=== PATIENT | female | born 1985 | race Caucasian/White ===

== ENCOUNTER 2017-03-06 06:40 | Emergency (ER) | payer OTHER ==
[~2017-03-06] VITALS: Ht 172.7 cm; Wt 193.2 kg
[~2017-03-06 06:40] MED LIST: ALBU8.5H2 INHALATION; ALPR0.5T PO; ATEN100T PO; BUDE90AE IH; CETI5TAB28 PO; ERGO500050 PO; FLUO20CA25 PO; GABA-500 PO; IMI100 PO; LOSA50TA37 PO; METF500T4 PO; OMEP40CA36 PO; ONDA-53 PO; PRAM0.5T3 PO; PRAZ1CAP2 PO; RANI150C4 PO; TRAZ-115 PO; TRIA10.8 NS; ZONI25CA3 PO
[2017-03-06 06:43] VITALS: BP 187/111; PULSE 66; RESP 18; O2SAT 96
--- NOTE | 2017-03-06 06:46 | ED.REPORT ---
HPI-Facial Injury Date of Service Mar 06, 2017 ED Provider: Trey Mahmood Patient is a 31 year old female with a hx of Asthma, anxiety, DM, and HTN complaining of dental pain onset yesterday but awoke her from sleep at 0300 this morning. Her pain is localized to her back bottom molar. Associated symptoms include L sided facial pain and headache. She denies facial swelling, throat swelling, fevers, chills, or any other symptoms. She took Aleve at 0330 this morning. Patient has had issues with the same tooth previously. Nursing Notes Stated Complaint: DENTAL AND FACE PAIN LEFT SIDE Chief Complaint: Dental Nursing Notes Reviewed: Yes Allergies: Coded Allergies: Kiwi (Verified Allergy, Severe, Tongue swells, 04/25/16) vancomycin (Verified Adverse Reaction, Severe, ACUTE TUBULAR NECROSIS, ) Scheduled Atenolol (Atenolol) 100 Mg Tablet 50 MG PO QAM Atenolol (Atenolol) 100 Mg Tablet 100 MG PO QPM Budesonide (Pulmicort Flexhaler) 1 Puff/90 Mcg Aerp 1 PUFF IH BID Cetirizine (Cetirizine) 5 Mg Tablet 10 MG PO HS Ergocalciferol (Vitamin D2) (Drisdol) 50,000 Unit Capsule 50,000 UNIT PO Q7D Fluoxetine (Fluoxetine) 20 Mg Capsule 20 MG PO DAILY Gabapentin (Gabapentin) 100 Mg Capsule 200-300 MG PO HS Losartan Potassium (Losartan Potassium) 50 Mg Tablet 100 MG PO DAILY Metformin (Metformin) 500 Mg Tablet 1,000 MG PO QAM Metformin (Metformin) 500 Mg Tablet 1,500 MG PO QPM Omeprazole (Omeprazole) 40 Mg Capsule.dr 40 MG PO DAILY Penicillin V Potassium (Penicillin V Potassium) 250 Mg Tablet 250 MG PO QID Pramipexole Dihydrochloride (Mirapex) 0.5 Mg Tablet 0.5 MG PO HS Prazosin (Prazosin) 1 Mg Capsule 2 MG PO HS Ranitidine (Ranitidine) 150 Mg Capsule 150 MG PO BID Trazodone (Trazodone) 50 Mg Tablet 50-100 MG PO HS Triamcinolone Acetonide (Nasacort) 10.8 Ml Richards 2 SPRAYS NS DAILY Zonisamide (Zonisamide) 25 Mg Capsule 25 MG PO DAILY Scheduled PRN Albuterol HFA (Proair HFA) 8.5 Gm Hfa.aer.ad 2 PUFFS INHALATION Q4H PRN PRN For Shortness of Breath Alprazolam (Xanax) 0.5 Mg Tablet 0.5-1 TAB PO BID PRN PRN For Anxiety Ondansetron (Ondansetron) 4 Mg Tablet 4 MG PO Q8H PRN PRN For Nausea Sumatriptan (Imitrex) 100 Mg Tablet 100 MG PO PRN migraine MR x1/ NTE 200mg/24 hrs General Time Seen by Provider: 06:53 Chief Complaint Other (Dental pain ) Hx Obtained From: Patient Arrived By: Walk-in Onset Occurred: Yesterday Symptom Duration: Since onset Progression Since Onset: Gradually worsening Immunizations: Unknown Similar Sx Previous: Yes Past Medical History Past Medical History Asthma anxiety DM HTN Carpal tunnel Past Surgical History R CTR thigh abscess Reports: Cholecystectomy Smoking History Never Smoker Social History Alcohol Use: "Social" Drug Use: THC Other Social History: Ambulatory Status Independent Review of Systems Review of Systems Note: +dental pain, facial pain - facial swelling Constitutional: Denies: Chills, Fever Ears / Nose / Throat: Denies: Throat swelling Neurologic: Reports: Headache Complete sys rev & neg: except as marked. Physical Exam Initial Vital Signs Vital Signs (First) Date Time Temp Pulse Resp B/P Pulse Ox O2 Delivery O2 Flow Rate FiO2 03/06/17 06:43 36.7 66 18 187/111 96 Room Air Initial VS: Reviewed, Vital signs abnormal Psychiatric: Mood/affect normal, Behavior normal, Normal thought content Head / Eyes: Atraumatic, Normocephalic ENT: Airway patent, Mucous membranes moist, Pharynx NL, No facial swelling Multiple dental caries, no obvious abscess, tooth number 17 extensive decay Neck: Atraumatic, Supple, Full range of motion Neurologic: Oriented X3, Speech NL General/Constitutional: Awake, Alert Distress / Hydration: Positive: Distress mild Appearance / Presentation: Positive: Obese, morbidly Respiratory / Chest: No respiratory distress Cardiovascular: Heart rate NL Skin: Color NL, Warm, Dry Procedures Dental Nerve Block Dental Nerve Block Note: Left Inferior alveolar nerve block Time: 07:10 Block Performed by: ED physician Consent / Setup / Site Prep: Informed consent provided, Consent from patient , Time-out performed, Hand hygiene observed Anesthesia: Inferior alveolar block Local Anesthesia: Other (marcaine with epinephrine, 3 mL ) Post-Procedure / Complications: No complications Re-Eval/Medical Decision Med Decision/Clinical Course Med Decision/Clinical Course: no periapical abscess. no trismus. Re-Evaluation/Progress : Time of Eval: 07:11 Re-Evaluation/Progress Note: Discussed plan for discharge with dentist follow up. Patient understands and agrees with plan. All questions addressed at this time. Counseled Regarding: Diagnosis, Need for follow-up, When/why to return to ED Discharge & Departure Impression: Primary Impression: Dental caries Additional Impression: Jaw pain Disposition: Home Discharge Condition All VS Reviewed: Yes Condition: Improved Patient Instructions: Dental Caries (ED) Additional Instructions: Thank you for entrusting us with your care. You may take 2 Naproxen twice a day for your dental pain. Take penicillin as prescribed. You received your first dose in the emergency department. Follow up with a dentist as soon as possible. Return to the emergency department for new or worsening symptoms. Referrals: Jenny Dsouza MD (PCP) [facility] Attestation Portions of this note were transcribed by Keisha Pathak. I, Dr. Mahmood personally performed the history, physical exam and medical decision-making; I reviewed and confirmed the accuracy of the information in the transcribed note. Signed by: Onur Grant, 03/06/17 at 0719 copies to: Jenny Dsouza MD, Timothy S DO Mar 06, 2017 06:46 KEISHA PATHAK Mar 06, 2017 07:00
[2017-03-06] MEDS ORDERED: BUPIVACAINE HCL NERVEBLOCK ONE (07:05)
[2017-03-06] MEDS ORDERED: EPINEPHRINE NERVEBLOCK ONE (07:05)
[2017-03-06] MEDS ORDERED: Bupivacaine 0.5%/EPI 50 mL Inj ONE (07:06)
[2017-03-06] MEDS ORDERED: Bupivacaine 0.5%/EPI 50 mL Inj NERVEBLOCK SCH (07:08)
[2017-03-06] MEDS ORDERED: PENI250T2 PO (07:14)
[2017-03-06 07:30] VITALS: BP 148/90; PULSE 62; RESP 18; O2SAT 99
== END 2017-03-06 07:33 | disposition home or self-care (01) ==
LOC: SED 06:40
DX: K02.9 Dental caries, unspecified (principal); R68.84 Jaw pain; I10 Essential (primary) hypertension; E11.9 Type 2 diabetes mellitus without complications; J45.909 Unspecified asthma, uncomplicated; F41.9 Anxiety disorder, unspecified; Z79.84 Long term (current) use of oral hypoglycemic drugs; Z88.1 Allergy status to other antibiotic agents; Z91.018 Allergy to other foods
CPT/HCPCS: 64400; 96372; 99283; J1885